=== PATIENT | female | born 1970 | race African-American/Black ===

== ENCOUNTER 2016-11-18 18:14 | Emergency (ER) | payer MEDICAID ==
[~2016-11-18] VITALS: Ht 167.6 cm; Wt 63.5 kg
[~2016-11-18 18:14] MED LIST: LACO200T2 PO; LEVE10006 PO; LEVE500T6 PO; OMEP-10 PO; SULF1TAB38 PO; [UNRECOGNIZED DRUG - CODE] PO
--- OUTSIDE RECORDS SUMMARY | 2016-11-18 18:19 | XMS REPORT | Continuity of Care Document ---
Author Author [facility] Address Unknown Phone Unavailable Allergies Active Description Code Type Severity Reaction Onset Reported/Identified Relationship to Patient Clinical Status Yes No Known Drug Allergies [id number] Drug Allergy Unknown N/ A 05/15/2013 Medications Problems Date Dx Coded Attending Type Code Diagnosis Diagnosed By 04/10/2011 490 BRONCHITIS NOT SPECIFIED ACUTE OR CHRONIC 04/10/2011 780.39 SEIZURES OTHER 04/10/2011 786.2 COUGH 04/10/2011 490 BRONCHITIS NOT SPECIFIED ACUTE OR CHRONIC 04/10/2011 780.39 SEIZURES OTHER 04/10/2011 786.2 COUGH 04/10/2011 490 BRONCHITIS NOT SPECIFIED ACUTE OR CHRONIC 04/10/2011 780.39 SEIZURES OTHER 04/10/2011 786.2 COUGH 04/10/2011 CAPRI HILL APRN N 490 BRONCHITIS NOT SPECIFIED ACUTE OR CHRONIC 04/10/2011 JAIMIE HILL APRNCY N 780.39 SEIZURES OTHER 04/10/2011 JAIMIE HILL APRNCY N 786.2 COUGH 04/10/2011 EATON KLYSTROM TUBE TESTER, LUIS L 490 BRONCHITIS NOT SPECIFIED ACUTE OR CHRONIC 04/10/2011 EATON KLYSTROM TUBE TESTER, LUIS L 780.39 SEIZURES OTHER 04/10/2011 EATCYNDEE KLYSTROM TUBE TESTER, LUIS L 786.2 COUGH 04/10/2011 GARCIA DO FRANCISCO K 490 BRONCHITIS NOT SPECIFIED ACUTE OR CHRONIC 04/10/2011 GARCIA DO, FRANCISCO K 780.39 SEIZURES OTHER 04/10/2011 GARCIA DO, FRANCISCO K 786.2 COUGH 04/10/2011 EATON KLYSTROM TUBE TESTER, LUIS L 490 BRONCHITIS NOT SPECIFIED ACUTE OR CHRONIC 04/10/2011 EATON KLYSTROM TUBE TESTER, LUIS L 780.39 SEIZURES OTHER 04/10/2011 EATON KLYSTROM TUBE TESTER, LUIS L 786.2 COUGH 02/18/2012 305.1 TOBACCO ABUSE 02/18/2012 496 CHRONIC OBSTRUCTIVE PULMONARY DISEASE 02/18/2012 305.1 TOBACCO ABUSE 02/18/2012 496 CHRONIC OBSTRUCTIVE PULMONARY DISEASE 02/18/2012 305.1 TOBACCO ABUSE 02/18/2012 496 CHRONIC OBSTRUCTIVE PULMONARY DISEASE 02/18/2012 CAPRI HILL APRN N 305.1 TOBACCO ABUSE 02/18/2012 CAPRI HILL APRN N 496 CHRONIC OBSTRUCTIVE PULMONARY DISEASE 02/18/2012 OTTONIEL URIBEMiranda LUIS L 305.1 TOBACCO ABUSE 02/18/2012 VALERIECYNDEE KLYSTROM TUBE TESTERLUIS Jean L 496 CHRONIC OBSTRUCTIVE PULMONARY DISEASE 02/18/2012 RODOLFO GARCIA DOA K 305.1 TOBACCO ABUSE 02/18/2012 JOSE NÚÑEZ FRANCISCO K 496 CHRONIC OBSTRUCTIVE PULMONARY DISEASE 02/18/2012 OTTONIEL WESTLUIS L 305.1 TOBACCO ABUSE 02/18/2012 OTTONIEL URIBEMiranda LUIS L 496 CHRONIC OBSTRUCTIVE PULMONARY DISEASE 05/02/2012 278.02 Overweight 05/02/2012 793.80 Mammogram - Abnormal 05/02/2012 278.02 Overweight 05/02/2012 793.80 Mammogram - Abnormal 05/02/2012 278.02 Overweight 05/02/2012 793.80 Mammogram - Abnormal 05/02/2012 CAPRI HILL APRN N 278.02 Overweight 05/02/2012 CAPRI HILL APRN N 793.80 Mammogram - Abnormal 05/02/2012 OTTONIEL URIBELUIS Jean L 278.02 Overweight 05/02/2012 OTTONIEL WEST LUIS L 793.80 Mammogram - Abnormal 05/02/2012 GARCIA FRANCISCO K 278.02 Overweight 05/02/2012 GARCIA DO FRANCISCO K 793.80 Mammogram - Abnormal 05/02/2012 OTTONIEL URIBELUIS Jean L 278.02 Overweight 05/02/2012 OTTONIEL URIBEMiranda LUIS L 793.80 Mammogram - Abnormal 02/01/2013 535.50 GASTRITIS UNSPEC 02/01/2013 535.50 GASTRITIS UNSPEC 02/01/2013 535.50 GASTRITIS UNSPEC 02/01/2013 ARACELI MIRGALI KLYSTROM TUBE TESTER, CAPRI N 535.50 GASTRITIS UNSPEC 02/01/2013 OTTONIEL URIBELUIS Jean L 535.50 GASTRITIS UNSPEC 02/01/2013 GARCIA DO FRANCISCO K 535.50 GASTRITIS UNSPEC 02/01/2013 VALERIECYNDEE KLYSTROM TUBE TESTERLUIS Jean L 535.50 GASTRITIS UNSPEC 02/17/2013 789.07 ABDOMINAL PAIN GENERALIZED 02/17/2013 789.07 ABDOMINAL PAIN GENERALIZED 02/17/2013 CAPRI HILL APRN N 789.07 ABDOMINAL PAIN GENERALIZED 02/17/2013 LUIS ALCAZAR APRN L 789.07 ABDOMINAL PAIN GENERALIZED 02/17/2013 GARCIA DO, FRANCISCO K 789.07 ABDOMINAL PAIN GENERALIZED 02/17/2013 LUIS ALCAZAR APRN L 789.07 ABDOMINAL PAIN GENERALIZED 03/15/2013 620.2 OTHER AND UNSPECIFIED OVARIAN CYST 03/15/2013 V73.81 HPV SCREENING 03/15/2013 V74.5 STD SCREEN 03/15/2013 V76.10 BREAST CANCER SCREENING 03/15/2013 V76.2 CERVICAL CANCER SCREENING (PAP SMEAR) 03/15/2013 ARACELI MIR APRN CAPRI N 620.2 OTHER AND UNSPECIFIED OVARIAN CYST 03/15/2013 JAIMIE HILL APRNCY N V73.81 HPV SCREENING 03/15/2013 ARACELI MIR APRN CAPRI N V74.5 STD SCREEN 03/15/2013 ARACELI MIR APRN CAPRI N V76.10 BREAST CANCER SCREENING 03/15/2013 CAPRI HILL APRN N V76.2 CERVICAL CANCER SCREENING (PAP SMEAR) 03/15/2013 OTTONIEL URIBELUIS Jean L 620.2 OTHER AND UNSPECIFIED OVARIAN CYST 03/15/2013 OTTONIEL URIBEMiranda LUIS L V73.81 HPV SCREENING 03/15/2013 OTTONIEL URIBEMiranda LUIS L V74.5 STD SCREEN 03/15/2013 OTTONIEL URIBEMiranda LUIS L V76.10 BREAST CANCER SCREENING 03/15/2013 OTTONIEL URIBEMiranda LUIS L V76.2 CERVICAL CANCER SCREENING (PAP SMEAR) 03/15/2013 GARCIA DO, FRANCISCO K 620.2 OTHER AND UNSPECIFIED OVARIAN CYST 03/15/2013 GARCIA DO, FRANCISCO K V73.81 HPV SCREENING 03/15/2013 GARCIA DO, FRANCICSO K V74.5 STD SCREEN 03/15/2013 GARCIA DO, FRANCISCO K V76.10 BREAST CANCER SCREENING 03/15/2013 GARCIA DO, FRANCISCO K V76.2 CERVICAL CANCER SCREENING (PAP SMEAR) 03/15/2013 OTTONIEL URIBELAILA JeanSON L 620.2 OTHER AND UNSPECIFIED OVARIAN CYST 03/15/2013 LUIS ALCAZAR APRN L V73.81 HPV SCREENING 03/15/2013 LUIS ALCAZAR APRN L V74.5 STD SCREEN 03/15/2013 LUIS ALCAZAR APRN L V76.10 BREAST CANCER SCREENING 03/15/2013 LUIS ALCAZAR APRN L V76.2 CERVICAL CANCER SCREENING (PAP SMEAR) 04/03/2013 789.06 ABDOMINAL PAIN EPIGASTRIC 04/03/2013 CAPRI HILL APRN N 789.06 ABDOMINAL PAIN EPIGASTRIC 04/03/2013 LUIS ALCAZAR APRN L 789.06 ABDOMINAL PAIN EPIGASTRIC 04/03/2013 FRANCISCO GARCIA DO K 789.06 ABDOMINAL PAIN EPIGASTRIC 04/03/2013 LAILA ALCAZAR APRNSON L 789.06 ABDOMINAL PAIN EPIGASTRIC 02/13/2015 HECTOR ALEXANDER, VISHAL Mason Ot 535.40 02/13/2015 HECTOR ALEXANDER, VISHAL Mason Ot 535.60 02/13/2015 Ot 793.89 02/13/2015 ALTHEA DEGROOT APRN Ot 620.2 02/13/2015 HECTOR ALEXANDER, VISHAL Mason Ot 535.40 02/13/2015 HECTOR ALEXANDER, VISHAL Mason Ot 535.60 02/13/2015 HECTOR ALEXANDER, VISHAL Mason Ot V72.84 02/13/2015 Ot 793.89 02/13/2015 ALTHEA DEGROOT APRN Ot 620.2 02/13/2015 HECTOR ALEXANDER, VISHAL Mason Ot 535.40 02/13/2015 HECTOR ALEXANDER, VISHAL Mason Ot 535.60 02/13/2015 HECTOR ALEXANDER, VISHAL Mason Ot V72.84 02/14/2015 ALMA TSAI DO Ot 276.2 02/14/2015 ALMA TSAI DO Ot 276.51 02/14/2015 ALMA TSAI DO Ot 518.81 02/14/2015 ALMA TSAI DO Ot 599.0 02/14/2015 ALMA TSAI DO Ot 969.72 02/14/2015 ALMA TSAI DO Ot E849.0 02/14/2015 ALMA TSAI DO Ot E980.3 02/14/2015 ALMA TSAI DO Ot 276.2 02/14/2015 ALMA TSAI DO Ot 276.51 02/14/2015 QUIN ALMA Mason Ot 518.81 02/14/2015 QUIN ALMA Mason Ot 599.0 02/14/2015 QUIN ALMA Mason Ot 969.72 02/14/2015 ALMA TSAI DO Ot E849.0 02/14/2015 QUIN ALMA NÚÑEZ Ot E980.3 02/14/2015 QUIN ALMA Mason Ot 276.2 02/14/2015 QUIN ALMA Mason Ot 276.51 02/14/2015 QUIN ALMA Mason Ot 518.81 02/14/2015 QUIN ALMA Mason Ot 599.0 02/14/2015 QUIN ALMA Mason Ot 969.72 02/14/2015 QUIN ALMA Mason Ot E849.0 02/14/2015 QUIN ALMA Mason Ot E980.3 02/15/2015 QUIN NÚÑEZ ALMA Mason Ot 276.2 ACIDOSIS 02/15/2015 QUIN ALMA Mason Ot 276.51 DEHYDRATION 02/15/2015 QUIN ALMA Mason Ot 276.8 HYPOPOTASSEMIA 02/15/2015 QUIN ALMA Mason Ot 345.90 EPILEPSY UNSPEC W/O MENTION INTRACTABLE 02/15/2015 QUIN NÚÑEZ ALMA Mason Ot 518.81 ACUTE RESPIRATORY FAILURE 02/15/2015 QUIN NÚÑEZ ALMA Mason Ot 599.0 URIN TRACT INFECTION NOS 02/15/2015 QUIN NÚÑEZ ALMA Isabella Ot 969.72 POISONING BY AMPHETAMINES 02/15/2015 QUIN NÚÑEZ ALMA M Ot E849.0 ACCIDENT IN HOME 02/15/2015 QUIN NÚÑEZ ALMA M Ot E980.3 UNDETERM POIS-PSYCHOTROP 10/29/2015 KRIS EID MD Ot E86.0 DEHYDRATION 10/29/2015 KRIS EID MD Ot F17.210 NICOTINE DEPENDENCE, CIGARETTES, UNCOMPL 10/29/2015 KRIS EID MD Ot G40.901 EPILEPSY, UNSP, NOT INTRACTABLE, WITH ST 10/29/2015 KRIS EID MD Ot L68.0 HIRSUTISM 10/29/2015 KRIS EID MD Ot Z23 ENCOUNTER FOR IMMUNIZATION 10/29/2015 RAGINI ALEXANDER, KRIS Mayorga Ot Z91.19 PATIENT'S NONCOMPLIANCE W OTH MEDICAL TR 01/24/2016 Ot 793.89 OTH (ABN) FINDINGS ON RADIOLOGICAL EXAMI 01/24/2016 ALTHEA DEGROOT JENNA Ot 620.2 OVARIAN CYST NEC/NOS 01/24/2016 HECTOR ALEXANDER, VISHAL Mason Ot 535.40 OTH SPECIFIED GASTRITIS,W/O MENTION OF H 01/24/2016 HECTOR ALEXANDER, VISHAL Mason Ot 535.60 DUODENITIS, WITHOUT MENTION OF HEMORRHAG 01/24/2016 HECTOR ALEXANDER, VISHAL Mason Ot V72.84 EXAM PRE-OPERATIVE NOS 01/27/2016 MADLHI TEXT TRANSCRIBER Ot G40.909 EPILEPSY, UNSP, NOT INTRACTABLE, WITHOUT 02/10/2016 MADHI Gray TEXT TRANSCRIBER Ot G40.909 EPILEPSY, UNSP, NOT INTRACTABLE, WITHOUT 02/25/2016 MICHELL ALEXANDER, KYLE Oliveira Ot R56.9 UNSPECIFIED CONVULSIONS Procedures Code [place] [address] UA LONG DIP 02/01 98956 URINE TEST (IN-HOUSE) 02/01/2013 27529 H PYLORI (IN-HOUSE) 02/17/2013 43046 [facility] 02/17/2013 [id number] GFR CALC (RESULT ONLY) 02/17/2013 71718 CBC 02/17/[address] ABDOMEN & PELVIS W/ & W/O CONTRAST 02/17/2013 54089 TSH 02/17/2013 07591 CMP 12/07/2013 29566 AMYLASE 2013 19101 LIPASE 2013 63768 CBC 12/07/2013 00803 TEST, URINE (IN-HOUSE) 12/07/2013 87978 ROUTINE VENIPUNCTURE 12/07/2013 96.04 02/13/2015 96.71 02/13/2015 Results Encounters ACCT No. Visit Date/Time Discharge Status Pt. Type Provider Facility Loc./Unit Complaint [id number] 12/07/2013 10:47:00 12/07/2013 23: 59:59 CLS Outpatient FRANCISCO GARCIA DO [id number] 12/07/2013 10:47:00 12/07/2013 23: 59:59 CLS Outpatient LUIS ALCAZAR APRN [id number] 11/08/2013 10:23:00 11/08/2013 23: 59:59 CLS Outpatient LUIS ALCAZAR APRN [id number] 06/14/2013 14:46:00 06/14/2013 23: 59:59 CLS Outpatient ARACELI MIR APRN CAPRI N [id number] 04/03/2013 15:30:00 Document Registration [id number] 02/17/2013 14:17:00 Document Registration [id number] 02/01/2013 14:38:00 Document Registration
[2016-11-18] MEDS ORDERED: LEVETIRACETAM 1,000 MG (KEPPRA) TABLET PO ONE (18:30)
[2016-11-18] MEDS ORDERED: LACO100T2 PO (18:32)
--- NOTE | 2016-11-18 18:47 | ED Neurological Problem ---
General Chief Complaint: Neurological Problems Stated Complaint: SEIZURE Nursing Triage Note: PT ARRIVED PER EMS, PT HAS BEEN HAVING SEIZURES AT HOME, PT IS OUT OF MEDS, HAS REFILLS AVAILABLE BUT HAD NOT WENT TO GET MEDS FILLED. PT STATES HAS BEEN HAVING SEIZURES AT HOME SINCE LAST NITE, ACCORDING TO BOTTLE PT WAS SUPPOSE TO HAVE BEEN OUT 2 WEEKS AGO, STATES TOOK LAST MED LAST PM Nursing Sepsis Screen: No Definite Risk Source: patient, EMS History of Present Illness Time seen by provider: 18:25 Initial Comments 45 yo female patient presents to the ED with c/o several seizures at home last night. Patient states she has missed her Keppra dose and is out of the medication. States she has a refill to pharmacy, but has not picked it up yet. Patient states she takes the medication as prescribed and does not miss doses normally. Patient's bottle however is noted to have been filled on September 30 for a 30 day supply. Timing/Duration: episodic Associated Symptoms: No confusion, No fatigue, No fever/chills, No muscle spasms, No nausea/vomiting, No numbness in legs/feet, No paresthesia, No ringing in ears, seizuresNo sleepy, No slurred speech, No tingling in legs/feet , No trouble walking, No vision changes, No weakness Allergies and Home Medications Allergies Coded Allergies: No Known Drug Allergies (Unverified , 05/15/13) Home Medications Lacosamide 100 Mg Tablet Unknown Dose PO DAILY (Reported) Levetiracetam 500 Mg Tablet #14 500 MG PO BID You will take 500mg twice daily for two weeks then your primary will increase. Prescribed by: TYRELL PUGA on 10/29/15 9179 Constitutional: no symptoms reported Eyes: No Symptoms Reported Ears, Nose, Mouth, Throat: no symptoms reported Respiratory: No orthopnea, No short of breath, No stridor, No wheezing Cardiovascular: No chest pain, No edema, No palpitations, No syncope Gastrointestinal: No abdominal pain, No constipation, No diarrhea, No nausea, No vomiting Genitourinary: no symptoms reported Musculoskeletal: no symptoms reported Skin: no symptoms reported Psychiatric/Neurological: See HPIDenies Cognitive Dysfunction, Denies Headache , Denies Numbness, Denies Petit Mal Seizures, Denies Tingling, Denies Unable to Move Lower Ext, Denies Unable to Move Upper Ext, Denies Weakness All Other Systems Reviewed Negative Unless Noted: Yes (Negative excepted noted.) Past [id number]-[id number] Hx Patient Social History Alcohol Use: Denies Use Recreational Drug Use: No Smoking Status: Never a Smoker Recent Foreign Travel: No Contact w/Someone Who Travel: No Recent Infectious Disease Expo: No Immunizations Up To Date Tetanus Booster (TDap): Unknown Surgeries HX Surgeries: No Surgeries: Abdominal Respiratory Hx Respiratory Disorders: No Cardiovascular Hx Cardiac Disorders: No Neurological Hx Neurological Disorders: Yes Neurological Disorders: Seizure Disorder Reproductive System Hx Reproductive Disorders: No Female Reproductive Disorders: Ovarian Cyst Genitourinary Hx Genitourinary Disorders: No Gastrointestinal Hx Gastrointestinal Disorders: Yes Gastrointestinal Disorders: Gastroesophageal Reflux Musculoskeletal Hx Musculoskeletal Disorders: No Endocrine Hx Endocrine Disorders: No HEENT HX ENT Disorders: No Cancer Hx Cancer: No Psychosocial Hx Psychiatric Problems: No Integumentary HX Skin/Integumentary Disorder: No Blood Transfusions Hx Blood Disorders: No Adverse Reaction to a Blood Tr: No Reviewed Nursing Assessment Reviewed/Agree w Nursing PMH: Yes Family Medical History Significant Family History: No Pertinent Family Hx Physical Exam Vital Signs Vital Sign - Last 12Hours 11/18/16 18:15 Temp 97.3 Pulse 114 Resp 18 B/P 140/87 Pulse Ox 98 Capillary Refill : Less Than 3 Seconds General Appearance: WD/WN no apparent distress HEENT: PERRL/EOMI pharynx normal Neck: non-tender full range of motion supple normal inspection Respiratory: lungs clear normal breath sounds no respiratory distress Cardiovascular: normal peripheral pulses regular rate, rhythm no murmur Gastrointestinal: non tender softNo distended Back: normal inspection no vertebral tenderness Extremities: normal inspection no pedal edema no calf tenderness normal capillary refill pelvis stable Neurologic/Psychiatric: director game II-XII nml as tested no motor/sensory deficits alert oriented x 3 depressed affect Crainal Nerves: normal hearing normal speech PERRL Coordination/Gait: normal finger to nose normal gait negative Romberg's sign Motor/Sensory: no motor deficit no sensory deficit no pronator drift Skin: normal color warm/dry Progress/Results/Core Measures Results/Orders My Orders Orders-JERROD ALEXANDER Levetiracetam Tablet (Keppra Tablet) (11/18/16 18:30) Medications Given in ED Current Medications Medications Dose Ordered Sig/Winnie Route Start Time Stop Time Status Last Admin Dose Admin Levetiracetam 1,000 mg ONCE ONCE PO 11/18/16 18:30 11/18/16 18:31 DC 11/18/16 18:43 1,000 MG Vital Signs/I&O Vital Sign - Last 12Hours 11/18/16 11/18/16 18:15 18:53 Temp 97.3 97.3 Pulse 114 114 Resp 18 18 B/P 140/87 Pulse Ox 98 98 Blood Pressure Mean: 104 Departure Communication Progress Notes Of [place] in the emergency department. Instructed to poultry picker her Keppra and Vimpat prescription first thing tomorrow morning. Patient does have 2 Vimpat pills. Patient case discussed with Pavan Alatorre MD. He agrees with the plan of care. Impression Impression: Primary Impression: Medication administered Additional Impression: Seizure disorder Disposition: HOME, SELF-CARE Condition: Improved Departure-Patient Inst. Decision time for Depature: 18:44 Referrals: FRANCISCO GARCIA DO (PCP) Primary Care Physician HI DAILY (Family) Primary Care Physician Patient Instructions: Epilepsy in Adults Add. Discharge Instructions: All discharge instructions reviewed with patient and/or family. Voiced understanding. Resume Keppra and Vimpat as instructed. [facility] as previously scheduled. Follow-up with her family practitioner for recheck as an outpatient. Return to the emergency department for worsened symptoms or any other concerns. JERROD ALEXANDER Nov 18, 2016 18:47
[2016-11-18 18:53] VITALS: BP 140/87
== END 2016-11-18 19:06 | disposition home or self-care (01) ==
LOC: EDUNIT# 18:14 → ER 18:15
DX: G40.909 Epilepsy, unspecified, not intractable, without status epilepticus (principal); Z79.899 Other long term (current) drug therapy
CPT/HCPCS: 99283

== ENCOUNTER 2017-03-01 15:42 | Emergency (ER) | payer MEDICAID ==
[~2017-03-01] VITALS: Ht 167.6 cm; Wt 63.5 kg
[~2017-03-01 15:42] MED LIST changes: +LACO100T2 PO
[2017-03-01] MEDS ORDERED: TETANUS,DIPTH,PERTUSS P/F (BOOSTRIX) 0.5 ML VIAL IM ONE (16:00)
[2017-03-01] MEDS ORDERED: LORazepam INJ 2 MG/ML (ATIVAN) VIAL ONE (16:01)
--- NOTE | 2017-03-01 16:14 | ED Neurological Problem ---
General Chief Complaint: Neurological Problems Stated Complaint: SEIZURE,HIT HEAD Source: patient Exam Limitations: no limitations History of Present Illness Time seen by provider: 16:12 Initial Comments To ER per EMS from home with reports of a seizure, falling and striking the front of her head. She denies neck pain. She has a known history of seizure disorder for which she takes Vimpat and Keppra. According to my records her Keppra prescription ran out 3 days ago. However, patient assures me that she refilled last week and has plenty at home. Timing/Duration: 4-6 hours Severity: moderate Associated Symptoms: seizures Allergies and Home Medications Allergies Coded Allergies: No Known Drug Allergies (Unverified , 05/15/13) Home Medications Lacosamide 100 Mg Tablet, Unknown Dose PO DAILY, (Reported) Levetiracetam 500 Mg Tablet, 500 MG PO BID, #14 You will take 500mg twice daily for two weeks then your primary will increase. Prescribed by: TYRELL PUGA on 10/29/15 0946 Levetiracetam 500 Mg Tablet, 500 MG PO BID, #30 Prescribed by: DONA ROQUE on 03/01/17 1715 Metronidazole 500 Mg Tablet, 500 MG PO BID, #14 Prescribed by: DONA ROQUE on 03/01/17 1738 Constitutional: see HPI Eyes: No Symptoms Reported Ears, Nose, Mouth, Throat: no symptoms reported Respiratory: no symptoms reported Cardiovascular: no symptoms reported Genitourinary: no symptoms reported Musculoskeletal: no symptoms reported Skin: see HPI Past Nmhtbgh-Froxvb-Vuturv Hx Patient Social History Alcohol Use: Denies Use Recreational Drug Use: No Smoking Status: Current Everyday Smoker Type Used: Cigarettes 2nd Hand Smoke Exposure: No Recent Hopitalizations: No Immunizations Up To Date Tetanus Booster (TDap): Unknown Seasonal Allergies Seasonal Allergies: No Surgeries HX Surgeries: No Surgeries: Abdominal Respiratory Hx Respiratory Disorders: No Cardiovascular Hx Cardiac Disorders: No Neurological Hx Neurological Disorders: Yes Neurological Disorders: Seizure Disorder Reproductive System Hx Reproductive Disorders: No Female Reproductive Disorders: Ovarian Cyst Genitourinary Hx Genitourinary Disorders: No Gastrointestinal Hx Gastrointestinal Disorders: Yes Gastrointestinal Disorders: Gastroesophageal Reflux Musculoskeletal Hx Musculoskeletal Disorders: No Endocrine Hx Endocrine Disorders: No HEENT HX ENT Disorders: No Cancer Hx Cancer: No Psychosocial Hx Psychiatric Problems: No Integumentary HX Skin/Integumentary Disorder: No Blood Transfusions Hx Blood Disorders: No Adverse Reaction to a Blood Tr: No Family Medical History Significant Family History: No Pertinent Family Hx Physical Exam Vital Signs Vital Sign - Last 12Hours 03/01/17 15:45 Temp 98.2 Pulse 102 Resp 18 B/P (MAP) 124/96 Pulse Ox 97 O2 Delivery Room Air Capillary Refill : General Appearance: WD/WN, no apparent distress HEENT: PERRL/EOMI, normal ENT inspection Neck: non-tender, full range of motion Respiratory: no respiratory distress, no accessory muscle use Gastrointestinal: normal bowel sounds, non tender, soft Extremities: normal range of motion, non-tender Neurologic/Psychiatric: alert, normal mood/affect, oriented x 3 Crainal Nerves: normal hearing, normal speech Motor/Sensory: no motor deficit, no sensory deficit Skin: normal color, warm/dry Progress/Results/Core Measures Results/Orders Lab Results Laboratory Tests Test 03/01/17 16:10 03/01/17 17:00 Range/Units White Blood Count 16.6 H 4.3-11.0 10^3/uL Red Blood Count 5.25 4.35-5.85 10^6/uL Hemoglobin 15.2 11.5-16.0 G/DL Hematocrit 46 35-52 % Mean Corpuscular Volume 88 80-99 FL Mean Corpuscular Hemoglobin 29 25-34 PG Mean Corpuscular Hemoglobin Concent 33 32-36 G/DL Red Cell Distribution Width 14.2 10.0-14.5 % Platelet Count 316 130-400 10^3/uL Mean Platelet Volume 10.1 7.4-10.4 FL Neutrophils (%) (Auto) 50 42-75 % Lymphocytes (%) (Auto) 39 12-44 % Monocytes (%) (Auto) 8 0-12 % Eosinophils (%) (Auto) 3 0-10 % Basophils (%) (Auto) 0 0-10 % Neutrophils # (Auto) 8.2 H 1.8-7.8 X 10^3 Lymphocytes # (Auto) 6.5 H 1.0-4.0 X 10^3 Monocytes # (Auto) 1.3 H 0.0-1.0 X 10^3 Eosinophils # (Auto) 0.5 H 0.0-0.3 10^3/uL Basophils # (Auto) 0.1 0.0-0.1 10^3/uL Neutrophils % (Manual) 40 % Lymphocytes % (Manual) 52 % Monocytes % (Manual) 7 % Eosinophils % (Manual) 1 % Basophils % (Manual) 0 % Band Neutrophils 0 % Blood Morphology Comment NORMAL Sodium Level 143 135-145 MMOL/L Potassium Level 3.4 L 3.6-5.0 MMOL/L Chloride Level 109 H 98-107 MMOL/L Carbon Dioxide Level 14 L 21-32 MMOL/L Anion Gap 20 H 5-14 MMOL/L Blood Urea Nitrogen 7 7-18 MG/DL Creatinine 0.78 0.60-1.30 MG/DL Estimat Glomerular Filtration Rate > 60 BUN/Creatinine Ratio 9 0-20 Glucose Level 106 H 70-105 MG/DL Calcium Level 9.6 8.5-10.1 MG/DL Total Bilirubin 0.7 0.1-1.0 MG/DL Aspartate Amino Transf (AST/SGOT) 11 5-34 U/L Alanine Aminotransferase (ALT/SGPT) 11 0-55 U/L Alkaline Phosphatase 83 40-136 U/L Total Protein 7.6 6.4-8.2 GM/DL Albumin 4.2 3.2-4.5 GM/DL Serum Alcohol < 10 <10 MG/DL Urine Color YELLOW Urine Clarity CLEAR Urine pH 5 5-9 Urine Specific Elim 1.025 H 1.016-1.022 Urine Protein 2+ H NEGATIVE Urine Glucose (UA) NEGATIVE NEGATIVE Urine Ketones 2+ H NEGATIVE Urine Nitrite NEGATIVE NEGATIVE Urine Bilirubin NEGATIVE NEGATIVE Urine Urobilinogen NORMAL NORMAL MG/DL Urine Leukocyte Esterase 2+ H NEGATIVE Urine RBC (Auto) NEGATIVE NEGATIVE Urine RBC RARE /HPF Urine WBC 2-5 /HPF Urine Squamous Epithelial Cells 0-2 /HPF Urine Crystals NONE /LPF Urine Bacteria NEGATIVE /HPF Urine Casts NONE /LPF Urine Mucus NEGATIVE /LPF Urine Trichomonas FEW H /HPF Urine Culture Indicated NO Urine Opiates Screen NEGATIVE NEGATIVE Urine Oxycodone Screen NEGATIVE NEGATIVE Urine Methadone Screen NEGATIVE NEGATIVE Urine Propoxyphene Screen NEGATIVE NEGATIVE Urine Barbiturates Screen NEGATIVE NEGATIVE Ur Tricyclic Antidepressants Screen NEGATIVE NEGATIVE Urine Phencyclidine Screen NEGATIVE NEGATIVE Urine Amphetamines Screen NEGATIVE NEGATIVE Urine Methamphetamines Screen NEGATIVE NEGATIVE Urine Benzodiazepines Screen NEGATIVE NEGATIVE Urine Cocaine Screen NEGATIVE NEGATIVE Urine Cannabinoids Screen NEGATIVE NEGATIVE My Orders Orders - DONA ROQUE PRICER Cbc With Automated Diff (03/01/17 15:57) Comprehensive Metabolic Panel (03/01/17 15:57) Ua Culture If Indicated (03/01/17 15:57) Ct Head/Cervical Spine Wo (03/01/17 15:57) Urine Bedside (03/01/17 15:57) Dipht,Pertuss(Acell),Tet Adult (Boostrix (03/01/17 16:00) Lorazepam Injection (Ativan Injection) (03/01/17 16:01) Lorazepam Injection (Ativan Injection) (03/01/17 16:15) Levetiracetam Injection (Keppra Injectio (03/01/17 21:00) Ns Iv 1000 Ml (Sodium Chloride 0.9%) (03/01/17 16:15) Saline Lock/Iv-Start (03/01/17 16:18) Levetiracetam Injection (Keppra Injectio (03/01/17 16:21) Manual Differential (03/01/17 16:10) Drug Screen Stat (Urine) (03/01/17 16:25) Alcohol (03/01/17 16:25) Medications Given in ED Current Medications Medications Dose Ordered Sig/Winnie Route Start Time Stop Time Status Last Admin Dose Admin Lorazepam 1 mg ONCE ONCE IVP 03/01/17 16:15 03/01/17 16:16 DC 03/01/17 16:05 1 MG Vital Signs/I&O Vital Sign - Last 12Hours 03/01/17 15:45 Temp 98.2 Pulse 102 Resp 18 B/P (MAP) 124/96 Pulse Ox 97 O2 Delivery Room Air Diagnostic Imaging Diagonstic Imaging: CT Comments NAME: JHONNY ATWOOD [facility] REC#: [id number] PT STATUS: REG ER : 1970 PHYSICIAN: DONA ROQUE APRN ADMIT DATE: 03/01/17/ER Draft Date of Exam:03/01/17 CT HEAD/CERVICAL SPINE WO CLINICAL INDICATION: Patient had seizure, fell and hit forehead. Patient has abrasion of forehead. Exam: Head CT without IV contrast. Axial CT scan of the cervical spine with sagittal and coronal reformations. Comparison: CT scan of the head without IV contrast dated 02/13/2015. Findings: Head CT: There is no evidence of acute cerebral infarct, intracranial hemorrhage, or gross mass effect. Stable small low-attenuation area in the left basal ganglia region which may be related to prominent perivascular space versus chronic lacunar infarct. There is normal orr-white matter distinction. The brain parenchymal volume appears appropriate for patient's age. There is no significant midline shift or herniation. There is no evidence of hydrocephalus. The basal cisterns are unremarkable. There is a small amount of extracranial soft tissue swelling in the midline forehead region. There is no skull fracture. The skull, extracranial soft tissue, and orbits are unremarkable. There are small mucous retention cysts or polyps involving both maxillary sinuses. Cervical spine: There is motion artifact which obscures portions of the C2 through upper C5 vertebra. There is no definite acute fracture or dislocation. There is no prevertebral soft tissue swelling. There are hypertrophic spurs seen throughout the cervical spine. There are hypertrophic posterior disc spurs and mild to moderate loss of intervertebral disc height is seen from the C3-C7 levels with at least mild to moderate central canal narrowing. There is severe bilateral C5-C6 neural foramen narrowing and severe left C6-C7 bony neural foramen narrowing. There is moderate right C3-C4 bony neural foramen narrowing. Visualized lung apices are clear. Neck soft tissue structures show no significant abnormality. IMPRESSION: 1: Stable CT scan of the brain with no evidence of acute intracranial process or intracranial hemorrhage. 2: Cervical spine degenerative disease with no acute cervical spine fracture or dislocation as visualized. Dictated on workstation # [id number] Dict: 03/01/17 1657 Trans: 03/01/17 1710 [id number] Interpreted by: CLIFF WORLEY MD Electronically signed by: Departure Communication Progress Notes [id number] called upon for [facility] which patient uses to fill her prescriptions. They report that the last time she filled her Keppra was a 30 day supply filled on January 26. 1748-patient did have 1 seizure with both arms drawn up to her chest and tight while she was here in the emergency room. Due to possibility of aspiration I will place her on antibiotic. She does admit that she's been out of her Keppra now. She is given 1 mg of Ativan IV and 500 mg of Keppra in the emergency room through her IV as well. Impression Impression: Primary Impression: Seizure disorder Additional Impressions: noncompliance with medication regimen Trichomoniasis Disposition: 01 HOME, SELF-CARE Condition: Stable Departure-Patient Inst. Decision time for Depature: 17:13 Referrals: FRANCISCO GARCIA DO (PCP/Family) Primary Care Physician Patient Instructions: Seizures, Adult (DC) Add. Discharge Instructions: 1. Fill the Keppra prescription and take it as directed. If you cannot afford my prescription, go have your prescription refilled at [facility] pharmacy. All discharge instructions reviewed with patient and/or family. Voiced understanding. Scripts Cefdinir (Cefdinir) 300 Mg Capsule 300 MG PO BID, #14 CAP Prov: DONA ROQUE APRN 03/01/17 Metronidazole (Metronidazole) 500 Mg Tablet 500 MG PO BID, #14 TAB Prov: DONA ROQUE PRICER 03/01/17 Levetiracetam (Keppra) 500 Mg Tablet 500 MG PO BID, #30 TAB Prov: DONA ROQUE APRN 03/01/17 DONA ROQUE APRN Mar 01, 2017 16:14
[2017-03-01] MEDS ORDERED: NS IV 1000 ML 1,000 ML IV SCH (16:15)
[2017-03-01] MEDS ORDERED: LORazepam INJ 2 MG/ML (ATIVAN) VIAL IVP ONE (16:15)
[2017-03-01 16:21] LABS: BASOPHILS # (AUTO) 0.1 10^3/uL (0.0-0.1); BASOPHILS % (AUTO) 0 % (0-10); EOSINOPHILS # (AUTO) 0.5 10^3/uL (0.0-0.3); EOSINOPHILS % (AUTO) 3 % (0-10); LYMPHOCYTES # (AUTO) 6.5 X 10^3 (1.0-4.0); LYMPHOCYTES % (AUTO) 39 % (12-44); MEAN CORPUSCULAR HEMOGLOBIN 29 PG (25-34); MEAN CORPUSCULAR HGB CONC 33 G/DL (32-36); MEAN CORPUSCULAR VOLUME 88 FL (80-99); MEAN PLATELET VOLUME 10.1 FL (7.4-10.4); MONOCYTES # (AUTO) 1.3 X 10^3 (0.0-1.0); MONOCYTES % (AUTO) 8 % (0-12); NEUTROPHILS # (AUTO) 8.2 X 10^3 (1.8-7.8); NEUTROPHILS % (AUTO) 50 % (42-75); PLATELET COUNT 316 10^3/uL (130-400); RED BLOOD COUNT 5.25 10^6/uL (4.35-5.85); RED CELL DISTRIBUTION WIDTH 14.2 % (10.0-14.5); WHITE BLOOD COUNT 16.6 10^3/uL (4.3-11.0)
[2017-03-01] MEDS ORDERED: LEVETIRACETAM INJECTION 500 MG in NS (IVPB) 50 ML IV STA (16:21)
[2017-03-01 16:34] LABS: BAND NEUTROPHILS 0 %; BASOPHILS % (MANUAL) 0 %; EOSINOPHILS % (MANUAL) 1 %; LYMPHOCYTES % (MANUAL) 52 %; NEUTROPHILS % (MANUAL) 40 %
[2017-03-01 16:38] LABS: ALANINE AMINOTRANSFERASE 11 U/L (0-55); ALBUMIN 4.2 GM/DL (3.2-4.5); ANION GAP 20 MMOL/L (5-14); ASPARTATE AMINO TRANSFERASE 11 U/L (5-34); BILIRUBIN,TOTAL 0.7 MG/DL (0.1-1.0); BLOOD UREA NITROGEN 7 MG/DL (7-18); BUN/CREATININE RATIO 9 (0-20); CALCIUM 9.6 MG/DL (8.5-10.1); CARBON DIOXIDE 14 MMOL/L (21-32); CHLORIDE 109 MMOL/L (98-107); CREATININE SERUM 0.78 MG/DL (0.60-1.30); GFR ESTIMATED > 60; GLUCOSE 106 MG/DL (70-105); HEMOLYSIS 16 (-100-29); ICTERUS 0.3 (-100-1.9); LIPEMIA 28 (-100-49); POTASSIUM 3.4 MMOL/L (3.6-5.0); SODIUM 143 MMOL/L (135-145); TOTAL PROTEIN 7.6 GM/DL (6.4-8.2)
--- NOTE | 2017-03-01 17:10 | Diagnostic Imaging Report ---
CLINICAL INDICATION: Patient had seizure, fell and hit forehead. Patient has abrasion of forehead. Exam: Head CT without IV contrast. Axial CT scan of the cervical spine with sagittal and coronal reformations. Comparison: CT scan of the head without IV contrast dated 02/13/2015. Findings: Head CT: There is no evidence of acute cerebral infarct, intracranial hemorrhage, or gross mass effect. Stable small low-attenuation area in the left basal ganglia region which may be related to prominent perivascular space versus chronic lacunar infarct. There is normal orr-white matter distinction. The brain parenchymal volume appears appropriate for patient's age. There is no significant midline shift or herniation. There is no evidence of hydrocephalus. The basal cisterns are unremarkable. There is a small amount of extracranial soft tissue swelling in the midline forehead region. There is no skull fracture. The skull, extracranial soft tissue, and orbits are unremarkable. There are small mucous retention cysts or polyps involving both maxillary sinuses. Cervical spine: There is motion artifact which obscures portions of the C2 through upper C5 vertebra. There is no definite acute fracture or dislocation. There is no prevertebral soft tissue swelling. There are hypertrophic spurs seen throughout the cervical spine. There are hypertrophic posterior disc spurs and mild to moderate loss of intervertebral disc height is seen from the C3-C7 levels with at least mild to moderate central canal narrowing. There is severe bilateral C5-C6 neural foramen narrowing and severe left C6-C7 bony neural foramen narrowing. There is moderate right C3-C4 bony neural foramen narrowing. Visualized lung apices are clear. Neck soft tissue structures show no significant abnormality. IMPRESSION: 1: Stable CT scan of the brain with no evidence of acute intracranial process or intracranial hemorrhage. 2: Cervical spine degenerative disease with no acute cervical spine fracture or dislocation as visualized. Dictated by: Dictated on workstation # [id number]
[2017-03-01] MEDS ORDERED: LEVE500T99 PO (17:15)
[2017-03-01 17:17] LABS: BILIRUBIN,URINE NEGATIVE (NEGATIVE); KETONES,URINE 2+ (NEGATIVE); LEUKOCYTE ESTERASE ,URINE 2+ (NEGATIVE); NITRITE,URINE NEGATIVE (NEGATIVE); PH,URINE 5 (5-9); PROTEIN,URINE 2+ (NEGATIVE); UROBILINOGEN,URINE NORMAL (NORMAL)
[2017-03-01 17:28] LABS: SQUAMOUS EPITHELIAL CELL,UR 0-2 /HPF; TRICHOMONAS,URINE FEW /HPF
[2017-03-01] MEDS ORDERED: METR500T21 PO (17:38)
[2017-03-01] MEDS ORDERED: CEFD300C3 PO (17:50)
[2017-03-01 18:04] VITALS: BP 133/77
[2017-03-01] MEDS ORDERED: LEVETIRACETAM INJECTION 500 MG in NS (IVPB) 50 ML IV SCH (21:00)
== END 2017-03-01 18:06 | disposition home or self-care (01) ==
LOC: EDUNIT# 15:42 → ER 15:44
DX: G43.909 Migraine, unspecified, not intractable, without status migrainosus (principal); A59.9 Trichomoniasis, unspecified; F17.210 Nicotine dependence, cigarettes, uncomplicated; Z91.14 Patient's other noncompliance with medication regimen
CPT/HCPCS: 36415; 70450; 72125; 80053; 80306; 80320; 81000; 84703; 85007; 85027; 90471; 90715; 96361; 96365; 96375

== ENCOUNTER 2017-04-18 13:04 | Observation (INO) | payer MEDICAID ==
[2017-04-18] VITALS (7 sets, daily range): BP systolic 128–149; BP diastolic 73–83
[~2017-04-18] VITALS: Ht 167.6 cm; Wt 63.5 kg
[~2017-04-18 13:04] MED LIST changes: +CEFD300C3 PO; +LEVE500T99 PO; +METR500T21 PO
--- NOTE | 2017-04-18 13:26 | ED Neurological Problem ---
General Chief Complaint: Neurological Problems Stated Complaint: SEIZURE Nursing Triage Note: ARRIVED VIA AMB TO ROOM 08 FROM HOME IN A POSTICTAL STATE. PT HAD A WITNESSED SEIZURE AT HOME AND HAD X2 YESTERDAY. PT STATES SHE HAS BEEN TAKING HER MEDICATION AND HAS NO RECENT CHANGE IN DOSAGE. PT WAS INC OF URINE. Nursing Sepsis Screen: No Definite Risk Source: patient Exam Limitations: no limitations History of Present Illness Time seen by provider: 13:18 Initial Comments Here with report of seizure at home. This was apparently the second seizure the day. She reports that she has been taking her medicines as directed and she has not missed any doses. She is up to Keppra 750 mg 2 tabs by mouth twice a day as well as the Vimpat. Denies missing any doses. Doing better while here. Denies recent illnesses. Timing/Duration: 4-6 hours Severity: moderate Associated Symptoms: confusion, No fever/chills, No nausea/vomiting, seizures Allergies and Home Medications Allergies Coded Allergies: No Known Drug Allergies (Unverified , 05/15/13) Home Medications Cefdinir 300 Mg Capsule, 300 MG PO BID, #14 Prescribed by: DONA ROQUE on 03/01/17 1750 Lacosamide 100 Mg Tablet, Unknown Dose PO DAILY, (Reported) Levetiracetam 500 Mg Tablet, 500 MG PO BID, #14 You will take 500mg twice daily for two weeks then your primary will increase. Prescribed by: TYRELL PUGA on 10/29/15 0946 Levetiracetam 500 Mg Tablet, 500 MG PO BID, #30 Prescribed by: DONA ROQUE on 03/01/17 1715 Metronidazole 500 Mg Tablet, 500 MG PO BID, #14 Prescribed by: DONA ROQUE on 03/01/17 1738 Constitutional: see HPI, No chills, No fever Eyes: No Symptoms Reported Ears, Nose, Mouth, Throat: no symptoms reported Respiratory: no symptoms reported Cardiovascular: no symptoms reported Gastrointestinal: no symptoms reported Genitourinary: no symptoms reported Musculoskeletal: no symptoms reported Skin: no symptoms reported All Other Systems Reviewed Negative Unless Noted: Yes Past Pqcljda-Pporhi-Jhukhb Hx Patient Social History Alcohol Use: Denies Use Recreational Drug Use: No Smoking Status: Current Everyday Smoker Type Used: Cigarettes 2nd Hand Smoke Exposure: No Recent Foreign Travel: No Contact w/Someone Who Travel: No Recent Infectious Disease Expo: No Recent Hopitalizations: No Immunizations Up To Date Tetanus Booster (TDap): Unknown Seasonal Allergies Seasonal Allergies: No Surgeries HX Surgeries: No Surgeries: Abdominal Respiratory Hx Respiratory Disorders: No Cardiovascular Hx Cardiac Disorders: No Neurological Hx Neurological Disorders: Yes Neurological Disorders: Seizure Disorder Reproductive System Hx Reproductive Disorders: No Female Reproductive Disorders: Ovarian Cyst Genitourinary Hx Genitourinary Disorders: No Gastrointestinal Hx Gastrointestinal Disorders: Yes Gastrointestinal Disorders: Gastroesophageal Reflux Musculoskeletal Hx Musculoskeletal Disorders: No Endocrine Hx Endocrine Disorders: No HEENT HX ENT Disorders: No Cancer Hx Cancer: No Psychosocial Hx Psychiatric Problems: No Integumentary HX Skin/Integumentary Disorder: No Blood Transfusions Hx Blood Disorders: No Adverse Reaction to a Blood Tr: No Reviewed Nursing Assessment Reviewed/Agree w Nursing PMH: Yes Family Medical History Significant Family History: No Pertinent Family Hx Physical Exam Vital Signs Vital Sign - Last 12Hours 04/18/17 13:17 Temp 98.0 Pulse 87 Resp 16 B/P (MAP) 141/88 Pulse Ox 99 Capillary Refill : Less Than 3 Seconds General Appearance: WD/WN, no apparent distress HEENT: PERRL/EOMI, pharynx normal Neck: full range of motion, supple Respiratory: lungs clear, normal breath sounds Cardiovascular: regular rate, rhythm, no murmur Peripheral Pulses: 2+ Dorsalis Pedis (R), 2+ Left Dors-Pedis (L), 2+ Radial Pulses (R), 2+ Radial Pulses (L) Gastrointestinal: non tender, soft Back: normal inspection, no CVA tenderness, no vertebral tenderness Extremities: non-tender, normal inspection Neurologic/Psychiatric: alert, oriented x 3 Crainal Nerves: normal speech, PERRL Motor/Sensory: no motor deficit, no sensory deficit Skin: normal color, warm/dry Progress/Results/Core Measures Results/Orders Lab Results Laboratory Tests Test 04/18/17 13:33 04/18/17 14:11 Range/Units White Blood Count 13.0 H 4.3-11.0 10^3/uL Red Blood Count 5.37 4.35-5.85 10^6/uL Hemoglobin 15.9 11.5-16.0 G/DL Hematocrit 47 35-52 % Mean Corpuscular Volume 87 80-99 FL Mean Corpuscular Hemoglobin 30 25-34 PG Mean Corpuscular Hemoglobin Concent 34 32-36 G/DL Red Cell Distribution Width 13.8 10.0-14.5 % Platelet Count 259 130-400 10^3/uL Mean Platelet Volume 10.1 7.4-10.4 FL Neutrophils (%) (Auto) 69 42-75 % Lymphocytes (%) (Auto) 24 12-44 % Monocytes (%) (Auto) 5 0-12 % Eosinophils (%) (Auto) 2 0-10 % Basophils (%) (Auto) 0 0-10 % Neutrophils # (Auto) 9.0 H 1.8-7.8 X 10^3 Lymphocytes # (Auto) 3.1 1.0-4.0 X 10^3 Monocytes # (Auto) 0.7 0.0-1.0 X 10^3 Eosinophils # (Auto) 0.2 0.0-0.3 10^3/uL Basophils # (Auto) 0.0 0.0-0.1 10^3/uL Sodium Level 138 135-145 MMOL/L Potassium Level 3.4 L 3.6-5.0 MMOL/L Chloride Level 104 98-107 MMOL/L Carbon Dioxide Level 23 21-32 MMOL/L Anion Gap 11 5-14 MMOL/L Blood Urea Nitrogen 8 7-18 MG/DL Creatinine 0.73 0.60-1.30 MG/DL Estimat Glomerular Filtration Rate > 60 BUN/Creatinine Ratio 11 Glucose Level 124 H 70-105 MG/DL Calcium Level 9.3 8.5-10.1 MG/DL Magnesium Level 2.2 1.8-2.4 MG/DL Total Bilirubin 0.7 0.1-1.0 MG/DL Aspartate Amino Transf (AST/SGOT) 21 5-34 U/L Alanine Aminotransferase (ALT/SGPT) 20 0-55 U/L Alkaline Phosphatase 74 40-136 U/L Total Protein 7.2 6.4-8.2 GM/DL Albumin 4.1 3.2-4.5 GM/DL My Orders Orders - PREM VEGA MD Cbc With Automated Diff (04/18/17 13:23) Comprehensive Metabolic Panel (04/18/17 13:23) Magnesium (04/18/17 13:23) Vital Signs/I&O Vital Sign - Last 12Hours 04/18/17 13:17 Temp 98.0 Pulse 87 Resp 16 B/P (MAP) 141/88 Pulse Ox 99 Blood Pressure Mean: 105 Progress Note : Progress Note Seen and evaluated. IV and labs ordered. Monitor patient. 1511: Labs reviewed. I discussed the case with Dr. Michael Mcclain at [facility]. She will arrange for follow-up tomorrow. Patient has had no return of seizure activity while here. She reports that she has her medicines at home and we will let her go home and she can take her normal dosing tonight. She is at max dose for her Keppra currently. Discharged home with return precautions. Patient verbalize understanding instructions and agreement with plan. Departure Impression Impression: Primary Impression: Seizure disorder Disposition: HOME, SELF-CARE Condition: Stable Departure-Patient Inst. Decision time for Depature: 15:14 Referrals: FRANCISCO GARCIA DO (PCP/Family) Primary Care Physician Patient Instructions: Seizures, Adult (DC) Add. Discharge Instructions: All discharge instructions reviewed with patient and/or family. Voiced understanding. Continue home medications as previously prescribed. Follow-up with the [facility] tomorrow. They should call you for appointment but you may call in the mid morning time if you have not heard from them. Make sure you 're taking her medications as directed. Drink plenty of fluids. Give plenty of rest. Eat a normal diet. Return for worsening, fever, vomiting, weakness, breathing problems, return of seizures or other concerns as needed. Copy Copies To 1: MICHAEL MCCLAIN MD, TIMOTHY D MD Apr 18, 2017 13:26
[2017-04-18 13:40] LABS: BASOPHILS % (AUTO) 0 % (0-10); EOSINOPHILS # (AUTO) 0.2 10^3/uL (0.0-0.3); EOSINOPHILS % (AUTO) 2 % (0-10); LYMPHOCYTES # (AUTO) 3.1 X 10^3 (1.0-4.0); LYMPHOCYTES % (AUTO) 24 % (12-44); MEAN CORPUSCULAR HEMOGLOBIN 30 PG (25-34); MEAN CORPUSCULAR HGB CONC 34 G/DL (32-36); MEAN CORPUSCULAR VOLUME 87 FL (80-99); MEAN PLATELET VOLUME 10.1 FL (7.4-10.4); MONOCYTES # (AUTO) 0.7 X 10^3 (0.0-1.0); MONOCYTES % (AUTO) 5 % (0-12); NEUTROPHILS % (AUTO) 69 % (42-75); PLATELET COUNT 259 10^3/uL (130-400); RED BLOOD COUNT 5.37 10^6/uL (4.35-5.85); RED CELL DISTRIBUTION WIDTH 13.8 % (10.0-14.5)
[2017-04-18 14:37] LABS: ALANINE AMINOTRANSFERASE 20 U/L (0-55); ALBUMIN 4.1 GM/DL (3.2-4.5); ANION GAP 11 MMOL/L (5-14); ASPARTATE AMINO TRANSFERASE 21 U/L (5-34); BILIRUBIN,TOTAL 0.7 MG/DL (0.1-1.0); BLOOD UREA NITROGEN 8 MG/DL (7-18); BUN/CREATININE RATIO 11; CALCIUM 9.3 MG/DL (8.5-10.1); CARBON DIOXIDE 23 MMOL/L (21-32); CHLORIDE 104 MMOL/L (98-107); CREATININE SERUM 0.73 MG/DL (0.60-1.30); GFR ESTIMATED > 60; GLUCOSE 124 MG/DL (70-105); MAGNESIUM 2.2 MG/DL (1.8-2.4); POTASSIUM 3.4 MMOL/L (3.6-5.0); SODIUM 138 MMOL/L (135-145); TOTAL PROTEIN 7.2 GM/DL (6.4-8.2)
[2017-04-18] MEDS ORDERED: LORazepam INJ 2 MG/ML (ATIVAN) VIAL ONE (15:29)
[2017-04-18 15:54] LABS: BILIRUBIN,URINE NEGATIVE (NEGATIVE); KETONES,URINE NEGATIVE (NEGATIVE); LEUKOCYTE ESTERASE ,URINE NEGATIVE (NEGATIVE); NITRITE,URINE NEGATIVE (NEGATIVE); PH,URINE 6 (5-9); PROTEIN,URINE 1+ (NEGATIVE); UROBILINOGEN,URINE NORMAL (NORMAL)
[2017-04-18 16:02] LABS: SQUAMOUS EPITHELIAL CELL,UR 0-2 /HPF; WBC,URINE RARE /HPF
[2017-04-18] MEDS ORDERED: LEVE750T19 PO (16:21)
[2017-04-18] MEDS ORDERED: LACO200T2 PO (16:21)
[2017-04-18] MEDS ORDERED: MELO7.5T46 PO (16:21)
[2017-04-18] MEDS ORDERED: PATIENT MAY USE OWN MEDS, ALL MC SCH ×2 (16:30)
[2017-04-18] MEDS ORDERED: LORazepam INJ 2 MG/ML (ATIVAN) VIAL IVP PRN (16:30)
[2017-04-18] MEDS: NS IV 1000 ML 1,000 ML IV SCH (16:36)
[2017-04-18] MEDS: LEVETIRACETAM 500 MG (KEPPRA) TAB PO SCH (20:37)
[2017-04-18] MEDS ORDERED: LACOSAMIDE 100 MG PO SCH (21:00)
[2017-04-19] VITALS (12 sets, daily range): BP systolic 124–155; BP diastolic 68–89
[2017-04-19] MEDS: NS IV 1000 ML 1,000 ML IV SCH (02:34)
[2017-04-19 05:20] LABS: BASOPHILS % (AUTO) 0 % (0-10); EOSINOPHILS # (AUTO) 0.2 10^3/uL (0.0-0.3); EOSINOPHILS % (AUTO) 2 % (0-10); LYMPHOCYTES # (AUTO) 3.8 X 10^3 (1.0-4.0); LYMPHOCYTES % (AUTO) 33 % (12-44); MEAN CORPUSCULAR HEMOGLOBIN 30 PG (25-34); MEAN CORPUSCULAR HGB CONC 34 G/DL (32-36); MEAN CORPUSCULAR VOLUME 87 FL (80-99); MEAN PLATELET VOLUME 10.1 FL (7.4-10.4); MONOCYTES # (AUTO) 0.8 X 10^3 (0.0-1.0); MONOCYTES % (AUTO) 7 % (0-12); NEUTROPHILS # (AUTO) 6.8 X 10^3 (1.8-7.8); NEUTROPHILS % (AUTO) 59 % (42-75); PLATELET COUNT 253 10^3/uL (130-400); RED BLOOD COUNT 5.09 10^6/uL (4.35-5.85); RED CELL DISTRIBUTION WIDTH 13.8 % (10.0-14.5); WHITE BLOOD COUNT 11.6 10^3/uL (4.3-11.0)
[2017-04-19 05:31] LABS: ALANINE AMINOTRANSFERASE 17 U/L (0-55); ALBUMIN 3.9 GM/DL (3.2-4.5); ANION GAP 11 MMOL/L (5-14); ASPARTATE AMINO TRANSFERASE 18 U/L (5-34); BLOOD UREA NITROGEN 6 MG/DL (7-18); BUN/CREATININE RATIO 9; CALCIUM 8.9 MG/DL (8.5-10.1); CARBON DIOXIDE 21 MMOL/L (21-32); CHLORIDE 107 MMOL/L (98-107); CREATININE SERUM 0.67 MG/DL (0.60-1.30); GFR ESTIMATED > 60; GLUCOSE 83 MG/DL (70-105); POTASSIUM 3.2 MMOL/L (3.6-5.0); SODIUM 139 MMOL/L (135-145); TOTAL PROTEIN 6.5 GM/DL (6.4-8.2)
[2017-04-19] MEDS: LEVETIRACETAM 500 MG (KEPPRA) TAB PO SCH (08:40)
--- NOTE | 2017-04-19 10:15 | Discharge Instructions ---
Discharge Inst-[facility] Discharge Medications New, Converted or Re-Newed RX: Other (No new scripts) Continued Medications: Lacosamide (Vimpat) 200 Mg Tablet 200 MG PO BID, TAB Levetiracetam (Keppra) 750 Mg Tablet 1500 MG PO BID, TAB Patient Instructions Goal/Follow Up Appt: You have a Hospital followup Appt on Apr 28 at 2 pm with Sigrid Gill Patient Instructions: - Make sure you take your seizure medications as prescribed - Avoid activities that increase your seizure occurance - It is very important that you keep your follow up appt with your Neurologist Return to The Hospital For: - Increasing seizure activity Activity & Diet Discharge Diet: No Restrictions Activity as Tolerated: Yes Copy Copies To 1: Bridget STRATTON HOLLY R MD Apr 19, 2017 10:15
--- NOTE | 2017-04-19 10:16 | Discharge Summary ---
Diagnosis/Chief Complaint Date of Admission Apr 18, 2017 at 15:43 Date of Discharge 04/19/2017 Admission Diagnosis Admission Diagnosis Seizure disorder w/o Status Tobaccoism Discharge Diagnosis See Above Chief Complaint/HPI Chief Complaint/HPI 46 yo F with known seizure disorder that presented to ER following seizure like activity at home. States that she has not missed any doses of medications but has a history of not taking medications as prescribed. Denies any pain or feeling sick. States that she has appt with Dr Dougherty in a couple weeks. Discharge Summary-Simple/Stand Discharge Physical Examination Allergies: Coded Allergies: No Known Drug Allergies (Unverified , 05/15/13) Vitals & I&Os Vital Sign - Last 12Hours Date Time Temp Pulse Resp B/P (MAP) Pulse Ox O2 Delivery O2 Flow Rate FiO2 04/19/17 07:37 97.1 77 20 100 Room Air 04/18/17 16:15 2.00 General Appearance: Alert, Oriented X3, Cooperative, No Acute Distress HEENT: PERRLA, EOMI, Mucous Memb Moist/[place] Respiratory: Clear to Auscultation, Normal Air Movement Cardiovascular: Regular Rate, No Murmurs Abdominal: Normal Bowel Sounds, Soft, No Tenderness, No Hepatosplenomegaly Extremities: No Edema, No Tenderness/Swelling Skin: No Rashes, No Breakdown Neuro: Normal Gait, Normal Speech, Strength at 5/5 X4 Ext, Sensation Intact, Cranial Nerves 3-12 NL Psych/Mental Status: Mental Status NL, Mood NL Hospital Course See final discharge diagnosis. Pending Labs Keppra Level- pending Discussion & Recommendations 46 yo F with known seizure disorder that was admitted for observation after 2 seizures in the last 24 hrs. Keppra level pending. No further seizure activity. States that she has all her medications at home. D/c home today with follow up at [facility] and Dr Dougherty with neurology. Discharge Condition at discharge stable Instructions to patient/family Please see electonic discharge instructions given to patient. Discharge Medications Reviewed and agree with Discharge Medication list on patient's Discharge Instruction sheet Clinical Quality Measures DVT/VTE Risk/Contraindication: Risk Factor Score Per Nursin RFS Level Per Nursing on Admit: 1=Low/No VTE PPX Copy Copies To 1: [facility] HO[facility] MD Apr 19, 2017 10:16
[2017-04-19] MEDS ORDERED: LACOSAMIDE 100 MG PO SCH (21:00)
[2017-04-19] MEDS ORDERED: LEVETIRACETAM 750 MG PO SCH (21:00)
== END 2017-04-19 10:12 | disposition home or self-care (01) ==
LOC: EDUNIT# 13:04 → ER 13:05 → UNDOADMOB 15:43 → ICU 15:43 → UNDODISOB 04-19 11:30
PROVIDERS: ADMIT Pediatrics; ATTEND Pediatrics
DX: G40.909 Epilepsy, unspecified, not intractable, without status epilepticus (principal); F17.210 Nicotine dependence, cigarettes, uncomplicated; Z79.899 Other long term (current) drug therapy
CPT/HCPCS: 36415; 51701; 80053; 80177; 80306; 81000; 83735; 85025; G0378

== ENCOUNTER 2017-04-21 10:32 | Emergency (ER) | payer MEDICAID ==
[~2017-04-21] VITALS: Ht 167.6 cm; Wt 64.9 kg
[~2017-04-21 10:32] MED LIST changes: +LEVE750T19 PO; +MELO7.5T46 PO
[2017-04-21] MEDS ORDERED: NS IV 1000 ML 1,000 ML IV ONE (10:38)
[2017-04-21] MEDS ORDERED: LEVETIRACETAM INJECTION 500 MG in NS (IVPB) 50 ML IV STA (10:47)
[2017-04-21 11:06] LABS: BASOPHILS # (AUTO) 0.1 10^3/uL (0.0-0.1); BASOPHILS % (AUTO) 1 % (0-10); EOSINOPHILS # (AUTO) 0.3 10^3/uL (0.0-0.3); EOSINOPHILS % (AUTO) 3 % (0-10); LYMPHOCYTES # (AUTO) 2.5 X 10^3 (1.0-4.0); LYMPHOCYTES % (AUTO) 26 % (12-44); MEAN CORPUSCULAR HEMOGLOBIN 29 PG (25-34); MEAN CORPUSCULAR HGB CONC 33 G/DL (32-36); MEAN CORPUSCULAR VOLUME 87 FL (80-99); MONOCYTES # (AUTO) 0.7 X 10^3 (0.0-1.0); MONOCYTES % (AUTO) 7 % (0-12); NEUTROPHILS # (AUTO) 5.9 X 10^3 (1.8-7.8); NEUTROPHILS % (AUTO) 63 % (42-75); PLATELET COUNT 281 10^3/uL (130-400); RED BLOOD COUNT 5.27 10^6/uL (4.35-5.85); RED CELL DISTRIBUTION WIDTH 13.7 % (10.0-14.5); WHITE BLOOD COUNT 9.4 10^3/uL (4.3-11.0)
--- NOTE | 2017-04-21 11:07 | ED Neurological Problem ---
General Chief Complaint: Neurological Problems Stated Complaint: seizure Nursing Triage Note: PT ARRIVED PER EMS, PT HAD SEIZURE AT HOME, PT IS AWAKE AND ALERT AT THIS X, STATES HAS TAKEN MEDS THIS AM, SL IN PLACE L AC BY EMS Nursing Sepsis Screen: No Definite Risk Source: patient, EMS Exam Limitations: no limitations History of Present Illness Time seen by provider: 10:33 Initial Comments Here with report of seizure this morning. EMS notified and brought her in. She was apparently postictal on their arrival and continues to be now but improving. Seen 3 days ago for the same and was admitted overnight. There is some concerns about her taking her medicines correctly. She reported taking her medicines the other morning when she was seen on the last visit but her Keppra level was essentially negative. She again reports that she is taking her meds as directed. She has her medications with her. Pill count would indicate that she has missed doses although not sure if she miss this morning's dose. She does follow up with neurology, Dr. Dougherty. She has follow-up appointment set with both her neurologist and her primary care physician. She apparently had some blood at the corner of her mouth per report but no persistent bleeding or other injuries noted. Currently denies pain anywhere but does admit that her tongue has been bit a few times this week and maybe a little bit uncomfortable. Timing/Duration: 1/2 hour Severity: moderate, severe Associated Symptoms: No fever/chills, No muscle spasms, No nausea/vomiting, seizures Allergies and Home Medications Allergies Coded Allergies: No Known Drug Allergies (Unverified , 05/15/13) Home Medications Lacosamide 200 Mg Tablet, 200 MG PO BID, (Reported) Levetiracetam 750 Mg Tablet, 1,500 MG PO BID, (Reported) Constitutional: see HPI, No chills, No fever Eyes: No Symptoms Reported Ears, Nose, Mouth, Throat: no symptoms reported Respiratory: no symptoms reported Cardiovascular: no symptoms reported Gastrointestinal: no symptoms reported Genitourinary: no symptoms reported Skin: no symptoms reported Psychiatric/Neurological: See HPI, Tonic Clonic Seizures Endocrine: No Symptoms Reported All Other Systems Reviewed Negative Unless Noted: Yes Past Abseoyr-Cpeelb-Mscbli Hx Patient Social History Alcohol Use: Denies Use Recreational Drug Use: No Smoking Status: Current Everyday Smoker Type Used: Cigarettes 2nd Hand Smoke Exposure: No Recent Foreign Travel: No Contact w/Someone Who Travel: No Recent Infectious Disease Expo: No Recent Hopitalizations: Yes (SEIZURES) Immunizations Up To Date Tetanus Booster (TDap): Unknown Seasonal Allergies Seasonal Allergies: No Surgeries HX Surgeries: No Surgeries: Abdominal Respiratory Hx Respiratory Disorders: No Cardiovascular Hx Cardiac Disorders: No Neurological Hx Neurological Disorders: Yes Neurological Disorders: Seizure Disorder Reproductive System Hx Reproductive Disorders: No Female Reproductive Disorders: Ovarian Cyst Genitourinary Hx Genitourinary Disorders: No Gastrointestinal Hx Gastrointestinal Disorders: Yes Gastrointestinal Disorders: Gastroesophageal Reflux Musculoskeletal Hx Musculoskeletal Disorders: No Endocrine Hx Endocrine Disorders: No HEENT HX ENT Disorders: No Cancer Hx Cancer: No Psychosocial Hx Psychiatric Problems: No Integumentary HX Skin/Integumentary Disorder: No Blood Transfusions Hx Blood Disorders: No Adverse Reaction to a Blood Tr: No Reviewed Nursing Assessment Reviewed/Agree w Nursing PMH: Yes Family Medical History Significant Family History: No Pertinent Family Hx Family Medial History: Patient reports no known family medical history. Physical Exam Vital Signs Vital Sign - Last 12Hours 04/21/17 10:35 Temp 98.9 Pulse 90 Resp 18 B/P (MAP) 137/82 Pulse Ox 99 Capillary Refill : Less Than 3 Seconds General Appearance: WD/WN, no apparent distress HEENT: PERRL/EOMI, pharynx normal, other (abrasions noted to the lateral aspect of the tongue bilaterally but otherwise no intraoral injuries noted.) Neck: full range of motion, supple, normal inspection Respiratory: lungs clear, normal breath sounds Cardiovascular: regular rate, rhythm, no murmur Peripheral Pulses: 2+ Dorsalis Pedis (R), 2+ Left Dors-Pedis (L), 2+ Radial Pulses (R), 2+ Radial Pulses (L) Gastrointestinal: non tender, soft Back: normal inspection, no CVA tenderness, no vertebral tenderness Extremities: non-tender, normal inspection Neurologic/Psychiatric: alert, oriented x 3 Crainal Nerves: normal hearing, normal speech, PERRL Motor/Sensory: no motor deficit, no sensory deficit Skin: normal color, warm/dry Progress/Results/Core Measures Results/Orders Lab Results Laboratory Tests Test 04/21/17 10:50 04/21/17 11:31 Range/Units White Blood Count 9.4 4.3-11.0 10^3/uL Red Blood Count 5.27 4.35-5.85 10^6/uL Hemoglobin 15.2 11.5-16.0 G/DL Hematocrit 46 35-52 % Mean Corpuscular Volume 87 80-99 FL Mean Corpuscular Hemoglobin 29 25-34 PG Mean Corpuscular Hemoglobin Concent 33 32-36 G/DL Red Cell Distribution Width 13.7 10.0-14.5 % Platelet Count 281 130-400 10^3/uL Mean Platelet Volume 10.0 7.4-10.4 FL Neutrophils (%) (Auto) 63 42-75 % Lymphocytes (%) (Auto) 26 12-44 % Monocytes (%) (Auto) 7 0-12 % Eosinophils (%) (Auto) 3 0-10 % Basophils (%) (Auto) 1 0-10 % Neutrophils # (Auto) 5.9 1.8-7.8 X 10^3 Lymphocytes # (Auto) 2.5 1.0-4.0 X 10^3 Monocytes # (Auto) 0.7 0.0-1.0 X 10^3 Eosinophils # (Auto) 0.3 0.0-0.3 10^3/uL Basophils # (Auto) 0.1 0.0-0.1 10^3/uL Sodium Level 143 135-145 MMOL/L Potassium Level 4.3 3.6-5.0 MMOL/L Chloride Level 110 H 98-107 MMOL/L Carbon Dioxide Level 22 21-32 MMOL/L Anion Gap 11 5-14 MMOL/L Blood Urea Nitrogen 12 7-18 MG/DL Creatinine 0.75 0.60-1.30 MG/DL Estimat Glomerular Filtration Rate > 60 BUN/Creatinine Ratio 16 Glucose Level 83 70-105 MG/DL Calcium Level 9.8 8.5-10.1 MG/DL Magnesium Level 2.2 1.8-2.4 MG/DL Total Bilirubin 0.6 0.1-1.0 MG/DL Aspartate Amino Transf (AST/SGOT) 16 5-34 U/L Alanine Aminotransferase (ALT/SGPT) 15 0-55 U/L Alkaline Phosphatase 74 40-136 U/L Total Creatine Kinase 85 29-168 U/L Total Protein 7.3 6.4-8.2 GM/DL Albumin 4.2 3.2-4.5 GM/DL My Orders Orders - PREM VEGA MD Cbc With Automated Diff (04/21/17 10:38) Comprehensive Metabolic Panel (04/21/17 10:38) Creatine Kinase (04/21/17 10:38) Magnesium (04/21/17 10:38) Saline Lock/Iv-Start (04/21/17 10:38) Ns Iv 1000 Ml (Sodium Chloride 0.9%) (04/21/17 10:38) Levetiracetam Level (Keppra) (04/21/17 10:38) Levetiracetam Injection (Keppra Injectio (04/21/17 10:47) Medications Given in ED Current Medications Medications Dose Ordered Sig/Winnie Route Start Time Stop Time Status Last Admin Dose Admin Sodium Chloride 1,000 ml @ 0 mls/hr Q0M ONCE IV 04/21/17 10:38 04/21/17 10:40 DC 04/21/17 10:59 1,000 MLS/HR Vital Signs/I&O Vital Sign - Last 12Hours 04/21/17 10:35 Temp 98.9 Pulse 90 Resp 18 B/P (MAP) 137/82 Pulse Ox 99 Blood Pressure Mean: 100 Progress Note : Progress Note Seen and evaluated. IV by EMS. Labs, Keppra level and normal saline 1 L bolus ordered. I did discuss the case with Dr. Quintanilla, on-call for [facility]. She will discuss it with Dr. Dougherty, primary neurologist for patient. Keppra 500 mg IV ordered. 1103: I did discuss the case with Dr. Quintanilla. She has verified follow-up. No new orders at this time as there is some concerns about patient compliance although she says that we can consider Ativan for a few days as needed at home. There is concerns about compliance related to this as well though. Monitor patient. 1215: No repeat seizures. Otherwise improved. Discharged home with return precautions. Patient verbalize understanding instructions and agreement with plan. Verbalize the need for compliance. Patient will bring her medicines with her to the appointment at [facility]. Current then pat count in her pill bottle is 43 remaining. The Keppra pill count is 84 remaining. Departure Impression Impression: Primary Impression: Seizure disorder Disposition: 01 HOME, SELF-CARE Condition: Stable Departure-Patient Inst. Decision time for Depature: 12:21 Referrals: FRANCISCO GARCIA DO (PCP/Family) Primary Care Physician Patient Instructions: Seizures, Adult (DC) Add. Discharge Instructions: All discharge instructions reviewed with patient and/or family. Voiced understanding. It is very important that you take your medicines as prescribed. Continue dosing tonight as previously prescribed. Take your medicines within your pill bottles to the clinic next week. Please make sure you take all of your prescribed medicines with you with all available doses. Return for worse pain, fever, vomiting, weakness, breathing problems, seizures or other concerns as needed. Copy Copies To 1: CAMERON QUINTANILLA MD, TIMOTHY D MD Apr 21, 2017 11:07
[2017-04-21 11:56] LABS: ALANINE AMINOTRANSFERASE 15 U/L (0-55); ALBUMIN 4.2 GM/DL (3.2-4.5); ANION GAP 11 MMOL/L (5-14); ASPARTATE AMINO TRANSFERASE 16 U/L (5-34); BILIRUBIN,TOTAL 0.6 MG/DL (0.1-1.0); BLOOD UREA NITROGEN 12 MG/DL (7-18); BUN/CREATININE RATIO 16; CALCIUM 9.8 MG/DL (8.5-10.1); CARBON DIOXIDE 22 MMOL/L (21-32); CHLORIDE 110 MMOL/L (98-107); CREATINE KINASE 85 U/L (29-168); CREATININE SERUM 0.75 MG/DL (0.60-1.30); GFR ESTIMATED > 60; GLUCOSE 83 MG/DL (70-105); MAGNESIUM 2.2 MG/DL (1.8-2.4); POTASSIUM 4.3 MMOL/L (3.6-5.0); SODIUM 143 MMOL/L (135-145); TOTAL PROTEIN 7.3 GM/DL (6.4-8.2)
[2017-04-21 12:57] VITALS: BP 155/80
== END 2017-04-21 12:57 | disposition home or self-care (01) ==
LOC: EDUNIT# 10:32 → ER 10:34
DX: G40.909 Epilepsy, unspecified, not intractable, without status epilepticus (principal); K21.9 Gastro-esophageal reflux disease without esophagitis; F17.210 Nicotine dependence, cigarettes, uncomplicated; Z87.448 Personal history of other diseases of urinary system
CPT/HCPCS: 36415; 80053; 80177; 82550; 83735; 85025; 93041; 96361; 96365

== ENCOUNTER → 2017-05-25 | Outpatient (CLI) | payer MEDICAID ==
--- NOTE | 2017-05-26 17:48 | Diagnostic Imaging Report ---
Bilateral screening mammogram 2D views with tomosynthesis. The current study was also evaluated with a Computer Aided Detection (CAD) system. INDICATION: Screening. No current complaints stated on the questionnaire. COMPARISON: 05/17/2012. FINDINGS: The breasts are composed of scattered fibroglandular densities. There are scattered benign-appearing calcifications. Allowing for technique and positional differences, no suspicious change is seen. IMPRESSION: No significant change. ACR BI-RADS Category 2: Benign findings. Result letter will be mailed to the patient. Note: At least 10% of breast cancer is not imaged by mammography. Dictated by: Dictated on workstation # [id number]
== END ==
LOC: RAD 08:50
PROVIDERS: ATTEND Nurse Practitioner Family
DX: Z12.31 Encounter for screening mammogram for malignant neoplasm of breast (principal)
CPT/HCPCS: 77067